=== PATIENT | male | born 1965 | race African-American/Black ===

== ENCOUNTER 2020-10-01 11:38 | Day surgery (SDC) | payer OTHER ==
[2020-09-29 15:36] VITALS: BMI 28.8
[2020-10-01 12:14] VITALS: PULSE 68
[2020-10-01 13:09] VITALS: BP 136/84; TEMP 97.8
== END 2020-10-01 13:36 | disposition home or self-care (01) ==
LOC: FASU-ENDO 11:38
PROVIDERS: ATTEND Internal Medicine Gastroenterology
PROC: 0DB68ZX Excision of Stomach, Via Natural or Artificial Opening Endoscopic, Diagnostic (ICD-10-PCS; 2020-10-01)
PROC: 0DB48ZX Excision of Esophagogastric Junction, Via Natural or Artificial Opening Endoscopic, Diagnostic (ICD-10-PCS; 2020-10-01)
PROC: 0DB98ZX Excision of Duodenum, Via Natural or Artificial Opening Endoscopic, Diagnostic (ICD-10-PCS; principal; 2020-10-01 12:31)
DX: K29.50 Unspecified chronic gastritis without bleeding (principal); R10.13 Epigastric pain
CPT/HCPCS: 82962

== ENCOUNTER 2021-07-06 09:51 | Emergency (ER) | payer OTHER ==
[2021-07-06 10:08] VITALS: TEMP 98; BMI 29.5
[2021-07-06] MEDS ORDERED: FAMOTIDINE 20 MG/50 ML IVPB 20 MG/50 ML MG IVPB ONE ×2 (11:11→11:21)
[2021-07-06] MEDS ORDERED: ACETAMINOPHEN 1000 MG/100 ML BAG IVPB ONE (11:11)
[2021-07-06] MEDS ORDERED: SODIUM CHLORIDE 0.9% 500 ML INFUS.BAG IV ONE (11:11)
[2021-07-06] MEDS ORDERED: MAG HYDROX/AL HYDROX/SIMETH 30 ML UNIT-DOSE CUP PO ONE (11:11)
[2021-07-06] MEDS ORDERED: ACETAMINOPHEN INJECTION 100 ML IVPB ONE (11:21)
[2021-07-06] MEDS ORDERED: MAG HYDROX/AL HYDROX/SIMETH 30 ML UNIT-DOSE CUP ONE (11:21)
[2021-07-06 11:56] LABS: BASO % 0.4 % (0-2.0); EOS % 1.5 % (0-4.5); HEMATOCRIT 38.4 % (35.4-49); HEMOGLOBIN 13.4 GM/dL (11.7-16.9); LYMPH % 15.6 % (8-40); MCH 27.5 pg (25.7-33.7); MEAN CELL VOLUME 78.5 fl (80-96); MEAN PLT VOLUME 7.6 fl (7.5-11.1); MONO % 6.6 % (3.8-10.2); NEUT % 75.9 % (42.8-82.8); PLATELET COUNT 246 10^3/uL (134-434); RBC 4.89 M/mm3 (4.00-5.60); RDW 13.4 % (11.9-15.9)
[2021-07-06 12:10] LABS: ALBUMIN 3.7 g/dl (3.4-5.0); CALCIUM 8.5 mg/dL (8.5-10.1)
[2021-07-06 12:11] LABS: BLOOD UREA NITROGEN 15.3 mg/dL (7-18)
[2021-07-06 12:13] LABS: CREATININE 0.9 mg/dL (0.55-1.3)
[2021-07-06 12:15] LABS: BILIRUBIN,TOTAL 0.7 mg/dL (0.2-1); TOT PROT 7.6 g/dl (6.4-8.2)
[2021-07-06 13:43] VITALS: BP 146/80; PULSE 76
== END 2021-07-06 13:43 | disposition home or self-care (01) ==
LOC: JER 09:51
PROC: 3E033GC Introduction of Other Therapeutic Substance into Peripheral Vein, Percutaneous Approach (ICD-10-PCS; principal; 2021-07-06)
DX: R10.13 Epigastric pain (principal)
CPT/HCPCS: 36415; 80053; 83690; 85025; 99284-25

== ENCOUNTER 2022-04-11 14:14 | Emergency (ER) | payer OTHER ==
[2022-04-11 14:29] VITALS: BP 140/89; PULSE 81; RESP 18; TEMP 98.3; BMI 28.8
[2022-04-11] MEDS ORDERED: TETANUS AND DIPHTHERIA TOXOID 0.5 ML DISP.SYRIN IM ONE (15:30)
[2022-04-11] MEDS ORDERED: DIPHTH,PERTUSS(ACELL),TET 0.5 ML DISP.SYRIN IM ONE (15:57)
== END 2022-04-11 17:48 | disposition home or self-care (01) ==
LOC: JERFT 14:14
PROC: 3E0234Z Introduction of Serum, Toxoid and Vaccine into Muscle, Percutaneous Approach (ICD-10-PCS; principal; 2022-04-11)
DX: M25.511 Pain in right shoulder (principal)
CPT/HCPCS: 71046-TC-FY; 73030-TC-RT-FY; 73552-TC-RT-FY; 73564-TC-RT-FY; 99285-25